=== PATIENT | female | born 1995 | race American Indian/Alaskan Native ===

== ENCOUNTER 2017-06-18 12:24 | Emergency (ER) | payer SELFPAY ==
[2017-06-18] MEDS ORDERED: ZOFRAN IV ONE ×2 (16:15→17:33)
[2017-06-18] MEDS ORDERED: NACL 0.9% 1000 ML 1,000 ML IV ONE ×2 (16:15→17:33)
[2017-06-18] MEDS ORDERED: PEPCID IV ONE (16:16)
--- NOTE | 2017-06-18 16:18 | Emergency Department Report ---
Blank Doc - Documentation Documentation: Patient is a 22-year-old hyperactive female who drank alcohol last night and vomiting since. Patient states she has been vomiting continuously since early this morning. Patient states it was she is vomiting now is yellowish-green in color. Patient has crampy mostly upper abdominal pain. Patient states the pain is crampy. Patient will be given Zofran IV fluids and Pepcid because of the frequency of the patient's vomiting today we'll check labs to ensure that she does not have any electrolyte abnormalities.
[2017-06-18 16:47] LABS: Hematocrit 41.3 % (30.3-42.9); Hemoglobin 13.6 gm/dl (10.1-14.3); Mean Corpuscular HGB Conc 33 % (30-34); Mean Corpuscular Hemoglobin 28 pg (28-32); Mean Corpuscular Volume 86 fl (79-97); Platelet Count 204 K/mm3 (140-440); Red Cell Distribution Width 13.5 % (13.2-15.2)
[2017-06-18 17:05] LABS: BUN/Creatinine Ratio 27; Blood Urea Nitrogen 16 mg/dL (7-17); Calcium 9.9 mg/dL (8.4-10.2); Hemolysis Index 10; Lipase 14 units/L (13-60)
--- NOTE | 2017-06-18 17:17 | Emergency Department Report ---
ED N/V/D HPI - General Chief complaint: Nausea/Vomiting/Diarrhea Stated complaint: FLU SX Time Seen by Provider: 06/18/17 15:49 Source: patient Mode of arrival: Ambulatory Limitations: No Limitations - History of Present Illness Initial comments: Patient reports that she was drinking last night at a friend's house and complained of vomiting since drinking last night. She said she drank water in triage and felt nauseous. Denies any abdominal pain or back pain. Denies any urinary burning frequency or urgency. Denies any fever or chills. She's had similar incident in the past. Last period was 06/11/2017. Patient has no medical problems. Denies vaginal bleeding or discharge. MD complaint: nausea, vomiting -: This morning Description of Vomiting: food contents Associated Abdominal Pain: No Pain Scale: 0 Context: alcohol abuse Associated Symptoms: loss of appetite, nausea/vomiting. denies: myalgias, chest pain, cough, diaphoresis, fever/chills, headaches, malaise, rash, dysuria , shortness of breath, syncope, weakness - Related Data Previous Rx's Medication Instructions Recorded Last Taken Type Dicyclomine [Bentyl] 20 mg PO Q8H 3 Days #9 tablet 06/18/17 Unknown Rx Promethazine [Phenergan TAB] 25 mg PO Q6HR PRN #12 tab 06/18/17 Unknown Rx Allergies Allergy/AdvReac Type Severity Reaction Status Date / Time No Known Allergies Allergy Unverified 06/18/17 13:12 ED Review of Systems ROS: Stated complaint: FLU SX Other details as noted in HPI Comment: All other systems reviewed and negative Constitutional: no symptoms reported ENT: denies: ear pain, throat pain, congestion Respiratory: no symptoms reported Cardiovascular: denies: chest pain, palpitations, dyspnea on exertion, orthopnea , edema, syncope, paroxysmal nocturnal dyspnea Gastrointestinal: nausea, vomiting. denies: abdominal pain, diarrhea, constipation, hematemesis, melena, hematochezia Genitourinary: denies: dysuria, frequency, hematuria, discharge, abnormal menses , dyspareunia Musculoskeletal: denies: back pain, joint swelling, arthralgia, myalgia Skin: denies: rash Neurological: denies: headache, numbness, paresthesias, confusion, abnormal gait , vertigo ED Past Medical Hx - Past Medical History Previous Medical History?: No - Surgical History Past Surgical History?: No - Family History Family history: no significant - Social History Smoking Status: Former Smoker Substance Use Type: Alcohol, Marijuana - Medications Home Medications: Home Medications Medication Instructions Recorded Confirmed Last Taken Type Dicyclomine [Bentyl] 20 mg PO Q8H 3 Days #9 tablet 06/18/17 Unknown Rx Promethazine [Phenergan TAB] 25 mg PO Q6HR PRN #12 tab 06/18/17 Unknown Rx ED Physical Exam - General Limitations: No Limitations General appearance: alert, in no apparent distress ED Course Vital Signs 06/18/17 13:12 Temperature 98.2 F Pulse Rate 54 L Respiratory 22 Rate Blood Pressure 127/79 O2 Sat by Pulse 99 Oximetry - Reevaluation(s) Reevaluation #1: 06/18/17 20:00 Patient here received 2 L of normal saline IV. Lab work is stable. She received Pepcid 20 mg IV, Zofran 4 g IV. Nausea was not completely relieved so she received another dose of Zofran 4 mg IV and IM and Reglan 10 mg IV. She is able to tolerate oral liquids without and difficulty. patient says she feels better and will be discharged home a prescription for Zofran and Bentyl. ED Medical Decision Making - Lab Data Result diagrams: 06/18/17 16:34 06/18/17 16:34 Lab Results 06/18/17 06/18/17 06/18/17 Range/Units 16:34 16:34 16:34 WBC 14.1 H (4.5-11.0) K/mm3 RBC 4.80 (3.65-5.03) M/mm3 Hgb 13.6 (10.1-14.3) gm/dl Hct 41.3 (30.3-42.9) % MCV 86 (79-97) fl MCH 28 (28-32) pg MCHC 33 (30-34) % RDW 13.5 (13.2-15.2) % Plt Count 204 (140-440) K/mm3 Add Manual Diff Complete Total Counted 100 Seg Neutrophils % Screen Printer Helper Seg Neuts % (Manual) 93.0 H (40.0-70.0) % Band Neutrophils % 0 % Lymphocytes % (Manual) 2.0 L (13.4-35.0) % Reactive Lymphs % (Man) 0 % Monocytes % (Manual) 5.0 (0.0-7.3) % Eosinophils % (Manual) 0 (0.0-4.3) % Basophils % (Manual) 0 (0.0-1.8) % Metamyelocytes % 0 % Myelocytes % 0 % Promyelocytes % 0 % Blast Cells % 0 % Nucleated RBC % Not Reportable Seg Neutrophils # Man 13.1 H (1.8-7.7) K/mm3 Band Neutrophils # 0.0 K/mm3 Lymphocytes # (Manual) 0.3 L (1.2-5.4) K/mm3 Abs React Lymphs (Man) 0.0 K/mm3 Monocytes # (Manual) 0.7 (0.0-0.8) K/mm3 Eosinophils # (Manual) 0.0 (0.0-0.4) K/mm3 Basophils # (Manual) 0.0 (0.0-0.1) K/mm3 Metamyelocytes # 0.0 K/mm3 Myelocytes # 0.0 K/mm3 Promyelocytes # 0.0 K/mm3 Blast Cells # 0.0 K/mm3 WBC Morphology Not Reportable Hypersegmented Neuts Not Reportable Hyposegmented Neuts Not Reportable Hypogranular Neuts Not Reportable Smudge Cells Not Reportable Toxic Granulation Not Reportable Toxic Vacuolation Not Reportable Dohle Bodies Not Reportable Pelger-Huet Anomaly Not Reportable Radha Rods Not Reportable Platelet Estimate Consistent w auto Clumped Platelets Not Reportable Plt Clumps, EDTA Not Reportable Large Platelets Not Reportable Giant Platelets Not Reportable Platelet Satelliting Not Reportable Plt Morphology Comment Not Reportable RBC Morphology Not Reportable Dimorphic RBCs Not Reportable Polychromasia Not Reportable Hypochromasia Not Reportable Poikilocytosis Not Reportable Anisocytosis 1+ Microcytosis Not Reportable Macrocytosis Not Reportable Spherocytes Not Reportable Pappenheimer Bodies Not Reportable Sickle Cells Not Reportable Target Cells Not Reportable Tear Drop Cells Not Reportable Ovalocytes Not Reportable Helmet Cells Not Reportable [place] Bodies Not Reportable [place] Rings Not Reportable Guillermina Cells Not Reportable Bite Cells Not Reportable Crenated Cell Not Reportable Elliptocytes Not Reportable Acanthocytes (Spur) Not Reportable Rouleaux Not Reportable Hemoglobin C Crystals Not Reportable Schistocytes Not Reportable Malaria parasites Not Reportable Catrachito Bodies Not Reportable Hem Pathologist Commnt No Sodium 144 (137-145) mmol/L Potassium 3.3 L (3.6-5.0) mmol/L Chloride 101.2 (98-107) mmol/L Carbon Dioxide 21 L (22-30) mmol/L Anion Gap 25 mmol/L BUN 16 (7-17) mg/dL Creatinine 0.6 L (0.7-1.2) mg/dL Estimated GFR > 60 ml/min BUN/Creatinine Ratio 27 % Glucose 119 H (65-100) mg/dL Calcium 9.9 (8.4-10.2) mg/dL Lipase 14 (13-60) units/L HCG, Qual Negative (Negative) Critical care attestation.: If time is entered above; I have spent that time in minutes in the direct care of this critically ill patient, excluding procedure time. ED Disposition Clinical Impression: Gastroenteritis Nausea & vomiting Qualifiers: Vomiting type: unspecified Vomiting Intractability: non-intractable Qualified Code(s): R11.2 - Nausea with vomiting, unspecified Disposition: DC-01 TO HOME OR SELFCARE Is pt being admited?: No Does the pt Need Aspirin: No Condition: Stable Instructions: Alcohol Intoxication (ED), Acute Nausea and Vomiting (ED), Gastroenteritis (ED) Additional Instructions: Please increase her fluid intake and cut back on all call use. Take Bentyl and Phenergan distal helped to relieve her nausea, stomach and please not drive or operate heavy machinery while taking this medication Follow-up primary care physician and 4 days and if you do not have one you can follow-up at [facility] Prescriptions: Dicyclomine [Bentyl] 20 mg PO Q8H 3 Days #9 tablet Promethazine [Phenergan TAB] 25 mg PO Q6HR PRN #12 tab PRN Reason: Nausea Referrals: PRIMARY CARE, [Primary Care Provider] - 06/22/17 Forms: Work/School Release Form(ED), Accompanied Note
[2017-06-18] MEDS ORDERED: REGLAN IV ONE (17:33)
[2017-06-18 17:53] LABS: Basophils % (Manual) 0 % (0.0-1.8); Eosinophils % (Manual) 0 % (0.0-4.3); Total Cells Counted 100
[2017-06-18 17:54] LABS: Anisocytosis 1+; Platelet Estimate Consistent w Auto
[2017-06-18 20:35] VITALS: BP 118/78
== END 2017-06-18 20:31 | disposition home or self-care (01) ==
LOC: ED 12:24
DX: K52.9 Noninfective gastroenteritis and colitis, unspecified (principal); F12.10 Cannabis abuse, uncomplicated; Z87.891 Personal history of nicotine dependence
CPT/HCPCS: 36415; 80048; 83690; 84703; 85007; 85025; 96361; 96374; 96375; 96376; 99283; J2405; J2765; J7030

== ENCOUNTER 2017-06-28 20:14 | Emergency (ER) | payer SELFPAY ==
[2017-06-28] MEDS ORDERED: ZOFRAN ODT ONE (21:07)
[2017-06-28 21:19] VITALS: BP 111/76
[2017-06-28] MEDS ORDERED: ZOFRAN ODT PO ONE (21:19)
[2017-06-28 22:32] LABS: Basophils % (Auto) 0.7 % (0.0-1.8); Eosinophils # (Auto) 0.2 K/mm3 (0.0-0.4); Eosinophils % (Auto) 3.2 % (0.0-4.3); Hematocrit 40.5 % (30.3-42.9); Hemoglobin 13.5 gm/dl (10.1-14.3); Lymphocytes # (Auto) 2.7 K/mm3 (1.2-5.4); Mean Corpuscular HGB Conc 33 % (30-34); Mean Corpuscular Hemoglobin 28 pg (28-32); Mean Corpuscular Volume 85 fl (79-97); Monocytes # (Auto) 0.7 K/mm3 (0.0-0.8); Monocytes % (Auto) 9.1 % (0.0-7.3); Platelet Count 195 K/mm3 (140-440); Red Blood Count 4.76 M/mm3 (3.65-5.03); Red Cell Distribution Width 13.8 % (13.2-15.2)
[2017-06-28 22:52] LABS: Alanine Aminotransferase 7 units/L (7-56); Albumin 4.6 g/dL (3.9-5); BUN/Creatinine Ratio 22; Blood Urea Nitrogen 13 mg/dL (7-17); Hemolysis Index 7
[2017-06-29] MEDS ORDERED: TYLENOL ONE (02:38)
[2017-06-29] MEDS ORDERED: TYLENOL PO ONE (03:41)
== END 2017-06-29 03:42 | disposition left against medical advice (07) ==
LOC: ED 20:14
DX: R55 Syncope and collapse (principal); R11.2 Nausea with vomiting, unspecified; Z53.21 Procedure and treatment not carried out due to patient leaving prior to being seen by health care provider
CPT/HCPCS: 36415; 80053; 82962; 84703; 85025; 93005; 93010; Q0162